=== PATIENT | male | born 1935 | race Caucasian/White ===

== ENCOUNTER 2018-07-23 03:34 | Inpatient (IN) | payer OTHER ==
[~2018-07-23] VITALS: Ht 167.6 cm; Wt 92.0 kg
[2018-07-23] VITALS (8 sets, daily range): BP systolic 107–143; BP diastolic 58–84
[~2018-07-23 03:34] MED LIST: ACIDOPHILUS LACT1 GM PO; ALEVE220 MG; ASPIRIN EC325 M1 OR; CO Q-10100 MG PO; COQ-10100 MG PO; DILTIAZEM ER300 MG OR; GLUCOPHAGE500 MG; GLUCOPHAGE500 MG OR; GLUCOSAMINE &1 EAC1; GLUCOSAMINE &1 EAC1 OR; HYALURONIC ACI1 EACH PO; HYALURONIC ACID OR; JANUVIA100 MG PO; LIPITOR40 MG PO; LISINOPRIL40 MG OR; MOBIC15 MG PO; NITROQUICK0.4 MG; OMEGA 3-6-9 CO400 MG PO; PRILOSEC 20 MG20 MG PO; PROAIR HFA8.5 GM IH; RANITIDINE HCL300 M1 OR; SIMVASTATIN40 MG OR; TRAMADOL 50 MG50 MG PO; TYLENOL EXTRA500 MG PO; ULTRAM 50MG TAB50 MG PO; VITAMIN D32000 UNIT OR; [UNRECOGNIZED DRUG - OTHER] PO; cartia XT PO
[2018-07-23] MEDS ORDERED: ASPIRIN325 PO (03:42)
[2018-07-23] MEDS ORDERED: ASPIR 8181 MG PO (03:42)
[2018-07-23 04:00] LABS: ABSOLUTE NEUTROPHILS 5.6 thou/uL (1.4-8.2); BASOPHILS 0.6 % (0.0-2.0); HEMATOCRIT 44.6 % (42.0-52.0); HEMOGLOBIN 15.2 gm/dL (14.0-18.0); LYMPHOCYTES 26.4 % (24.0-44.0); MCH 29.3 pg (26.0-34.0); MCHC 34.1 g/dL (28.0-37.0); MONOCYTES 11.8 % (1.0-8.0); PLATELET COUNT 275 thou/uL (150-400); POLYS 58.2 % (36.0-66.0); RBC 5.18 mil/uL (4.50-6.00); RDW 13.5 % (10.5-14.5); WBC 9.6 thou/uL (4.0-11.0)
[2018-07-23 04:03] LABS: ANION GAP 11 mmol/L (7-16); BUN 18 mg/dL (7-18); CHLORIDE 104 mmol/L (98-107); CO2 26 mmol/L (21-32); GLUCOSE 152 mg/dL (74-106); POTASSIUM 4.1 mmol/L (3.5-5.1); SODIUM 141 mmol/L (136-145)
[2018-07-23 04:11] LABS: TROPONIN-I <0.06 ng/mL (<0.06)
[2018-07-23] MEDS ORDERED: CARTIA XT300 M1 PO (05:15)
[2018-07-23] MEDS ORDERED: ALPHA LIPOIC A600 M1 PO (06:04)
[2018-07-23] MEDS ORDERED: MULTI VITAMIN1 EACH PO (06:05)
[2018-07-23 06:22] LABS: CHOLESTEROL 143 mg/dL (<200); HDL CHOLESTEROL 26 mg/dL (>40); LDL CHOLESTEROL 67 mg/dL (<100); TC:HDL 5.5 Ratio (Not establshd); TRIGLYCERIDE 251 mg/dL (<150); VLDL 50 mg/dL (<40)
[2018-07-23 06:26] LABS: SERUM ASSESSMENT Moderate Lipemia
--- NOTE | 2018-07-23 08:00 | NUR ---
05:37>ADMITTED AN 82 Y/M FROM ED W/ CC CHEST PRESSURE. ADMISSION CARE DONE. ASSESSMENT DOCUMENTED. DENIES ANY PAIN, DENIES CHEST PRESSURE AMND DENIES TINGLING SENSATION OR NUMBNESS. SR ON THE MONITOR. 02 AT 2L/NC, DENIES SOA. INSTRUCTED TO BE ON NPO. IV ON THE RIGHT AC SALINE LOCKED. FF UP POC.
--- NOTE | 2018-07-23 11:38 | 2DMMODE ---
[facility] [place] [address] 2 D/M-MODE ECHOCARDIOGRAM Name: JADE JENNINGS Room #: 218-P ADM IN M.R.#: [id number] ������������� Admission: 07/23/18 ������������� Attend Phys: Francisco Ptaton, Discharge: ��� ������������� ��� Date of : 39 Date of Service: 07/23/18 1138 �� Report #: [id number] �������� ��������������������������������������������[id number] THIS REPORT FOR: //name// APPROVED REPORT Study performed: 07/23/2018 08:36:31 EXAM: Comprehensive 2D, Doppler, and color-flow Echocardiogram Patient Location: Echo lab Room #: 218 Status: on-call BSA: 2.00 HR: 59 bpm BP: 123/61 mmHg Rhythm: NSR Other Information Study Quality: Adequate Indications Chest Pressure Dyspnea Hx: AL, stent, HTN, HLP, DM. 2D Dimensions RVDd: 39.07 mm IVSd: 9.51 (7-11mm) LVDd: 49.80 mm PWd: 10.75 (7-11mm) Ascending Ao: 37.16 (22-36mm) LVDs: 31.91 (25-40mm) Aortic Root: 38.00 mm Volumes Left Atrial Volume (Systole) Single Plane 4CH: 38.22 mL Single Plane 2CH: 60.96 mL LA ESV Index: 26.00 mL/m2 Aortic Valve AoV Peak Abad.: 1.24 m/s AO Peak Gr.: 6.19 mmHg LVOT Max P.63 mmHg LVOT Max V: 0.95 m/s Mitral Valve E/A Ratio: 0.8 MV Decel. Time: 293.38 ms [facility] [address] [place] [address] 2 D/M-MODE ECHOCARDIOGRAM Name: JADE JENNINGS Room #: 218-P [facility] IN ..#: [id number] ������������� Admission: 07/23/18 ������������� Attend Phys: Francisco Patton, Discharge: ��� ������������� ��� Date of : 39 Date of Service: 07/23/18 1138 �� Report #: [id number] �������� ��������������������������������������������[id number] MV E Max Abad.: 0.65 m/s MV A Abad.: 0.81 m/s MV PHT: 85.08 ms IVRT: 87.66 ms Pulmonary Valve PV Peak Abad.: 0.92 m/s PV Peak Gr.: 3.36 mmHg Pulmonary Vein P Vein S: 0.65 m/s P Vein A: 0.29 m/s P Vein D: 0.35 m/s P Vein A Dur.: 124.6 msec P Vein S/D Ratio: 1.86 Tricuspid Valve TR Peak Abad.: 2.39 m/s RAP Estimate: 5.00 mmHg TR Peak Gr.: 22.81 mmHg PA Pressure: 28.00 mmHg Left Ventricle The left ventricle is normal size. There is normal left ventricular wall thickness. Left ventricular systolic function is normal. LVEF is 55%. Mild diastolic dysfunction is present (impaired relaxation pattern). Right Ventricle The right ventricle is normal size. The right ventricular systolic function is normal. Atria The left atrium size is normal. The right atrium size is normal. Aortic Valve Aortic valve is trileaflet, mildly calcified. No aortic regurgitation is present. There is no aortic valvular stenosis. Mitral Valve The mitral valve is normal in structure. Mild mitral regurgitation. Tricuspid Valve The tricuspid valve is normal in structure. Trace tricuspid regurgitation. Estimated PAP is 28mmHg. Unable to assess PA pressure. Trace tricuspid regurgitation. Pulmonic Valve [facility] [address] [place] [address] 2 D/M-MODE ECHOCARDIOGRAM Name: JADE JENNINGS Room #: 218-P [facility] IN M.R.#: [id number] ������������� Admission: 07/23/18 ������������� Attend Phys: Francisco Patton, Discharge: ��� ������������� ��� Date of : 39 Date of Service: 07/23/18 1138 �� Report #: [id number] �������� ��������������������������������������������[id number] The pulmonary valve is normal in structure. Pulmonic valve is grossly normal in structure. Pulmonic valve is not well visualized. Pulmonic valve leaflets are thickened. Pulmonic valve leaflets are calcified. Trace pulmonic regurgitation. Great Vessels The aortic root and ascending aorta measure at the upper limits of normal. IVC is normal in size and collapses >50% with inspiration. Pericardium There is no pericardial effusion. <Conclusion> The left ventricle is normal size. There is normal left ventricular wall thickness. LVEF is 55%. The right ventricle is normal size. The right ventricular systolic function is normal. Aortic valve is trileaflet, mildly calcified. No aortic regurgitation is present. There is no aortic valvular stenosis. The mitral valve is normal in structure. Mild mitral regurgitation. There is no pericardial effusion. ��������������������������������������������� <ELECTRONICALLY SIGNED> ���������������������������������������� By: Zander Garcia MD ��������������������������������������������� 07/23/18 1138 1138 1138 Zander Garcia MD /INF
[2018-07-24 00:20] VITALS: BP 136/88
[2018-07-24 03:06] LABS: GLYCOHEMOGLOBIN (HGB A1C) 7.7 % (4.8-5.6)
[2018-07-24 04:13] VITALS: BP 151/83
[2018-07-24 05:11] LABS: CALCIUM 8.8 mg/dL (8.5-10.1); CREATININE 0.9 mg/dL (0.7-1.3)
--- NOTE | 2018-07-24 05:56 | NUR ---
ASSESSMENT DOCUMENTED. DENIES ANY PAIN. ABLE TO SLEEP WELL. FF UP POC,
[2018-07-24 08:30] VITALS: BP 153/78
[2018-07-24 12:30] VITALS: BP 139/79
--- NOTE | 2018-07-24 13:35 | EKG ---
[place] [address] [facility] [place] [address] ELECTROCARDIOGRAM REPORT Name: JADE JENNINGS Room #: 218-P ADM IN M.R.#: [id number] ������������������ Admission: 07/23/18 ������������������ Attend Phys: Francisco Patton MD Discharge: ������������������ Date of : 39 Report #: [id number] ����������������������������������������������������������������� [id number] THIS REPORT FOR: //name// [facility] ED Test Date: 2018-07-23 Test Time: 03:48:08 Pat Name: JADE JENNINGS Department: Room: 218 Gender: M Assistant Oceanographer: KRISTA : 1935 Requested By: Yeny Aden Order Number: [id number] MD: Carlos A Echeverria Measurements Intervals [place] Rate: 77 P: -41 WV: 189 QRS: -17 QRSD: 91 T: 23 QT: 381 QTc: 432 Interpretive Statements Sinus rhythm Ventricular premature complex Left ventricular hypertrophy Compared to ECG 11/19/2012 08:54:13 Ventricular premature complex(es) now present Electronically Signed On 07-24-2018 13:35:22 CDT by Carlos A Echeverria [email or web address] ��������������������������������������������� <ELECTRONICALLY SIGNED> ���������������������������������������� By: Carlos A Echeverria MD, [facility] ��������������������������������������������� 07/24/18 [phone] Carlos A Echeverria MD, [facility] /EPI
[2018-07-24 16:00] VITALS: BP 139/87
--- NOTE | 2018-07-24 18:36 | NUR ---
ASSUMED CARE AT 0715, OX4, NO COMPLAINTS OF CHEST PAIN OR SOA. VSS. NO ISSUES TODAY, VERY PLEASANT AND COMFORTABLE. NPO AFTER MN FOR HEART CATH IN AM.
[2018-07-24 19:18] VITALS: BP 157/89
[2018-07-25] VITALS (11 sets, daily range): BP systolic 138–157; BP diastolic 84–101
[2018-07-25 03:19] LABS: ABSOLUTE NEUTROPHILS 6.1 thou/uL (1.4-8.2); BASOPHILS 0.6 % (0.0-2.0); EOSINOPHILS 3.7 % (0.0-3.0); HEMATOCRIT 42.4 % (42.0-52.0); HEMOGLOBIN 14.2 gm/dL (14.0-18.0); LYMPHOCYTES 23.6 % (24.0-44.0); MCH 28.9 pg (26.0-34.0); MCHC 33.5 g/dL (28.0-37.0); MCV 86.2 fL (80.0-100.0); MONOCYTES 11.1 % (1.0-8.0); PLATELET COUNT 239 thou/uL (150-400); RBC 4.92 mil/uL (4.50-6.00); RDW 13.4 % (10.5-14.5); WBC 9.9 thou/uL (4.0-11.0)
[2018-07-25 03:33] LABS: ALBUMIN 3.5 g/dL (3.4-5.0); CALCIUM 8.9 mg/dL (8.5-10.1); CREATININE 0.9 mg/dL (0.7-1.3); POTASSIUM 3.9 mmol/L (3.5-5.1); TOTAL BILIRUBIN 0.4 mg/dL (<0.1-1.0); TOTAL PROTEIN 6.3 g/dL (6.4-8.2)
--- NOTE | 2018-07-25 03:57 | NUR ---
ASSUMED CARE 1900. VSS. ASSESSMENT CHARTED. PT DENIES CP, SOA, N/V, OR ANY RELATED SYMPTOMS. SR ON MONITOR, ONE SHORT RUN OF ST UP TO 150'S -AYSYMPTOMATIC. PLAN FOR LABS, EKG, AND PLASTER MODEL AND MOLD MAKER THIS AM. WILL CONTINUE TO MONITOR AND WITH POC.
--- NOTE | 2018-07-25 07:46 | EKG ---
[place] [address] [facility] [place] [address] ELECTROCARDIOGRAM REPORT Name: JADE JENNINGS Room #: 218-P ADM IN M.R.#: [id number] ������������������ Admission: 07/23/18 ������������������ Attend Phys: Jose De Jesus Sandoval MD Discharge: ������������������ Date of : 39 Report #: [id number] ����������������������������������������������������������������� [id number] THIS REPORT FOR: //name// [facility] Test Date: 2018-07-25 Test Time: 07:06:52 Pat Name: JADE JENNINGS Department: Room: 218 P Gender: M Leather Grader: : 1935 Requested By: Sweta Winchester Order Number: [id number] MD: Carlos A Echeverria Measurements Intervals [place] Rate: 81 P: -2 SC: 190 QRS: -8 QRSD: 87 T: 23 QT: 371 QTc: 431 Interpretive Statements Sinus rhythm Abnormal R-wave progression, early transition Compared to ECG 07/23/2018 03:48:08 Ventricular premature complex(es) no longer present Electronically Signed On 07-25-2018 7:46:33 CDT by Carlos A Echeverria [email or web address] ��������������������������������������������� <ELECTRONICALLY SIGNED> ���������������������������������������� By: Carlos A Echeverria MD, [facility] ��������������������������������������������� 07/25/18 0746 5 5 Carlos A Echeverria MD, [facility] /EPI
--- NOTE | 2018-07-25 09:29 | CATHLAB ---
[facility] [address] [place] [address] INVASIVE PROCEDURE REPORT Name: JADE JENNINGS Room #: 218-P ADM IN M.R.#: [id number] ������������� Admission: 07/23/18 ������������� Attend Phys: Jose De Jesus Sandoval, Discharge: ��� ������������� ��� Date of : 39 Date of Service: 07/25/18 0928 �� Report #: [id number] �������� ��������������������������������������������[id number] THIS REPORT FOR: //name// APPROVED REPORT Study performed: 07/25/2018 07:25:45 Patient Details Patient Status: In-Patient Room #: The patient is a 82 year-old male Event Personnel Carlos A Echeverria Cook Helper, Andres Meadows RN, Xiomy Hylton RT(R)() Colt Soto Roberta Monitor Procedures Performed Art Access - R femoral artery* Left Heart Cath w/or w/o Coronaries [id number] [facility] [address] Initial Mod Sed Same Phys/QHP Gr5y 538064 70284 Mod Sed Same Phys/QHP Ea 886656 FFR 9682219 FFR Hemostasis w/ Mynx Indication Chest pain Procedure Narrative The Right Groin^ was infiltrated with 1% Lidocaine subcutaneous anesthesia. A PINNACLE 6FR Sheath #[id number] sheath was inserted into the RFA 6F^. Coronary angiography was performed using coronary diagnostic catheters. The right coronary system was accessed and visualized with a JR4 catheter. The left coronary system was accessed and visualized with a JL4 catheter. The left ventricle was accessed and visualized with a ANGLE PIG catheter. Left ventricular/Aortic Valve gradient assessed . Closure device was deployed with a 6 Fr Mynx. The patient tolerated the procedure well and there were no complications associated with the procedure. There was no hematoma. Intraoperative Conscious Sedation Sedation start time: 0803 Case end Time: 0850 Fentanyl 50 mcg Versed 1.5 mg Fluoro Time: 3.30 minutes Dose: DAP 71291.00 cGycm2 1213 mGy Contrast Type and Amount: Omnipaque 160 ml [facility] [address] [place] [address] INVASIVE PROCEDURE REPORT Name: JADE JENNINGS Room #: 218-P [facility] IN M.R.#: [id number] ������������� Admission: 07/23/18 ������������� Attend Phys: Jose De Jesus Sandoval, Discharge: ��� ������������� ��� Date of : 39 Date of Service: 07/25/18 0928 �� Report #: [id number] �������� ��������������������������������������������[id number] Coronary Angiography The patient's coronary anatomy is right dominant. Diagnostic Cath Left Main Normal, short left main LAD The LAD was a large vessel that extended to the apex. Mild 10-20% proximal calcific plaquing. Diagonal 1 Small first diagonal branch, angiographically normal Diagonal 2 Second small diagonal branch, angiographically normal Circumflex Large but nondominant circumflex comprised of a single large marginal branch. Mild proximal plaquing. OM1 Mild 10-20% proximal plaquing Right Coronary The right coronary was dominant with a 50% mid right coronary stenosis. This was not flow-limiting by FFR 0.95 R PDA Normal posterior descending branch RPLV Normal posterolateral branch Left Ventriculography The left ventricle is normal in size with normal contractility. The left ventricular ejection fraction is estimated to be 60-65%. Left ventricular wall motion abnormalities are not present. There is no mitral insufficiency. Hemodynamics The aortic pressure is 156/85 mmHg with a mean of 110 mmHg. The left ventricular pressure is 140/11 mmHg with a mean of mmHg. The left ventricular end diastolic pressure is 15 mmHg. There was no gradient across the aortic valve upon pullback. Conclusion 1. Normal global and regional left ventricular systolic function. Ejection fraction 65% 2. Normal left main 3. Mild LAD plaquing 4. Mild circumflex plaquing 5. 50% mid right coronary stenosis, not flow-limiting by FFR assessment 0.95 [facility] [address] [place] [address] INVASIVE PROCEDURE REPORT Name: JENNINGSJADE RUFINO Room #: 218-P [facility] IN [facility].#: [id number] ������������� Admission: 07/23/18 ������������� Attend Phys: Jose De Jesus Sandoval, Discharge: ��� ������������� ��� Date of : 39 Date of Service: 07/25/18 0928 �� Report #: [id number] �������� ��������������������������������������������[id number] Recommendations Aggressive Medical Therapy ��������������������������������������������� <ELECTRONICALLY SIGNED> ���������������������������������������� By: Carlos A Echeverria MD, [facility] ��������������������������������������������� 07/25/18927 7 7 Carlos A Echeverria MD, [facility] /INF
--- NOTE | 2018-07-25 15:21 | NUR ---
PT CARE ASSUMED APPROX 0700. PT ALERT AND ORIENTED X4. DENIES PAIN AND SOA. PT WENT FOR CARDIAC CATH THIS AM FIRST THING. RETURNED FROM [facility] APPROX 0900 WITHOUT INTERVENTION. POST CATH PROTOCOL COMPLETED. RIGHT GROIN POST CATH SITE C/D/I. VSS STABLE POST CATH. DR ANDERSON APPROVED PT FOR DISCHARGE. DR LANZA SIGNED OFF. DISCHARGE PAPERWORK REVIEWED WITH PT. PT AND SPOUSE DENIED QUESTIONS OR CONCERNS REGARDING CONTINUED MEDS, F/U APPTS, VS, RIGHT GROIN POST CATH SITE CARE, POST CATH INSTRUCTIONS FOR ACTIVITY RESTRICTIONS, DIET AND GENERAL POST HOSPITAL CARE. IV OUT, TELE BOX OFF. HOSPITAL STAFF ESCORTED PUT OUT TO PERSONAL VEHICLE WITH PRESENT TO PROVIDE TRANSPORTATION HOME.
== END 2018-07-25 15:15 | disposition home or self-care (01) | DRG 287 ==
LOC: ER 03:34 → 2N 04:30 → EROBS 04:30 → 2N 05:11 → ENTRNSPT 07-25 15:00 → EDTRNSPTSTS 07-25 15:05 → 2N 07-25 15:15
PROVIDERS: Nurse Practitioner; Nurse Practitioner Family; Student in an Organized Health Care Education/Training Program; ADMIT Hospitalist
PROC: 4A033BC Measurement of Arterial Pressure, Coronary, Percutaneous Approach (ICD-10-PCS; principal; 2018-07-25)
PROC: 4A023N7 Measurement of Cardiac Sampling and Pressure, Left Heart, Percutaneous Approach (ICD-10-PCS; principal; 2018-07-25)
PROC: B2111ZZ Fluoroscopy of Multiple Coronary Arteries using Low Osmolar Contrast (ICD-10-PCS; principal; 2018-07-25)
PROC: B2151ZZ Fluoroscopy of Left Heart using Low Osmolar Contrast (ICD-10-PCS; principal; 2018-07-25)
DX: I25.110 Atherosclerotic heart disease of native coronary artery with unstable angina pectoris (principal); I10 Essential (primary) hypertension; E78.5 Hyperlipidemia, unspecified; E11.9 Type 2 diabetes mellitus without complications; K21.9 Gastro-esophageal reflux disease without esophagitis; Z95.5 Presence of coronary angioplasty implant and graft; Z98.49 Cataract extraction status, unspecified eye; Z79.82 Long term (current) use of aspirin; Z79.899 Other long term (current) drug therapy; Z79.84 Long term (current) use of oral hypoglycemic drugs; Z88.8 Allergy status to other drugs, medicaments and biological substances; I25.2 Old myocardial infarction; Z87.891 Personal history of nicotine dependence; Z82.49 Family history of ischemic heart disease and other diseases of the circulatory system; Z83.6 Family history of other diseases of the respiratory system
CPT/HCPCS: 10081

== ENCOUNTER → 2019-09-05 | Outpatient (CLI) | payer OTHER ==
[~2019-09-05] MED LIST changes: +ALPHA LIPOIC A600 M1 PO; +ASPIR 8181 MG PO; +ASPIRIN325 PO; +CARTIA XT300 M1 PO; +FAMOTIDINE20 MG PO; +GLUCOPHAGE XR500 MG PO; +JARDIANCE10 MG PO; -LISINOPRIL40 MG OR; +LISINOPRIL40 MG PO; +MULTI VITAMIN1 EACH PO; +OMEPRAZOLE40 MG PO
== END ==
LOC: SJCVC 10:11
PROVIDERS: ATTEND Internal Medicine
DX: I25.10 Atherosclerotic heart disease of native coronary artery without angina pectoris (principal); I10 Essential (primary) hypertension; E78.5 Hyperlipidemia, unspecified; I65.23 Occlusion and stenosis of bilateral carotid arteries; E11.9 Type 2 diabetes mellitus without complications; K21.9 Gastro-esophageal reflux disease without esophagitis; Z79.82 Long term (current) use of aspirin; Z79.899 Other long term (current) drug therapy; Z79.84 Long term (current) use of oral hypoglycemic drugs; Z87.891 Personal history of nicotine dependence

== ENCOUNTER 2019-10-10 08:13 | Day surgery (SDC) | payer OTHER ==
[2019-10-02 09:12] LABS: HEMATOCRIT 47.1 % (42.0-52.0); HEMOGLOBIN 15.1 gm/dL (14.0-18.0); MCH 26.8 pg (26.0-34.0); MCHC 32.1 g/dL (28.0-37.0); MCV 83.4 fL (80.0-100.0); RBC 5.65 mil/uL (4.50-6.00); RDW 15.5 % (10.5-14.5); WBC 9.4 thou/uL (4.0-11.0)
[2019-10-02 09:14] LABS: URINE BILIRUBIN NEGATIVE (Negative); URINE BLOOD NEGATIVE (Negative); URINE CLARITY CLEAR; URINE COLOR YELLOW; URINE GLUCOSE-RANDOM* 3+ (Negative); URINE KETONES NEGATIVE (Negative); URINE LEUKOCYTES-REFLEX NEGATIVE (Negative); URINE NITRITE-REFLEX NEGATIVE (Negative); URINE PROTEIN (DIPSTICK) NEGATIVE (Negative); URINE UROBILINOGEN 0.2 E.U./dl (0.2-1.0)
[2019-10-02 09:24] LABS: ALBUMIN 3.9 g/dL (3.4-5.0); CREATININE 1.2 mg/dL (0.7-1.3); POTASSIUM 4.2 mmol/L (3.5-5.1)
[2019-10-02 09:25] LABS: PROTIME 10.5 Seconds (9.3-11.4)
[~2019-10-10] VITALS: Ht 167.6 cm; Wt 85.7 kg
--- NOTE | ~2019-10-10 | O ---
[facility] [place] [address] OPERATIVE REPORT Name: JADE JENNINGS Room #: 150-5 [facility] M.R.#: [id number] Admission: 10/10/19 Attend Phys: Diogenes Arango MD Discharge: Date of : 39 Report #: [id number] THIS REPORT FOR: cc: Sharon Lantigua MD, Jennifer S. MD Abraham,Diogenes Vick MD ~ CC: Sharon Arango DATE OF SERVICE: 10/10/2019 PREOPERATIVE DIAGNOSIS: Right knee osteoarthritis. POSTOPERATIVE DIAGNOSIS: Right knee osteoarthritis. PROCEDURE: Right total knee arthroplasty using Navio robotic general surgery physician assistant. SURGEON: Diogenes Arango MD CVT RN: Fay Mancera PA-C. INDICATIONS FOR CVT RN: Throughout the case, extensive retraction and manipulation of the knee was required. This was afforded to me by my general surgery physician assistant. ANESTHESIA: LMA with an adductor canal block. IMPLANTS: Michele and Nephew size 7 Journey II BCS cobalt chrome femur, a size 6 tibia, size 9 polyethylene and size 38 patella. TOURNIQUET TIME: 53 minutes. ESTIMATED BLOOD LOSS: 25 mL. COMPLICATIONS: None. SPECIMENS: None. CONDITION UPON LEAVING THE OPERATING ROOM: Stable. INDICATIONS FOR PROCEDURE: The patient is an 83-year-old gentleman with severe right knee osteoarthritis. He had failed conservative measures for this and after discussion with him, he elected for right total knee arthroplasty. DESCRIPTION OF PROCEDURE: Risks, benefits, alternatives, complications were discussed in detail with the patient including but not limited to risk of anesthesia, risk of damage to nerves, arteries, blood vessels, risk for [facility] [address] [place] [address] OPERATIVE REPORT Name: JADE JENNINGS Room #: 150-5 [facility] M.R.#: [id number] Admission: 10/10/19 Attend Phys: Diogenes Arango MD Discharge: Date of : 37 Report #: [id number] infection, bleeding, risk for continued knee pain, need for reoperation. Informed consent was obtained from the patient. Right knee was appropriately marked in the preoperative holding area. Adductor canal block was placed by anesthesia. IV Ancef was given for preoperative antibiotics. He was brought to the operating room and placed in supine position on operating room table. General anesthesia was induced without complication. Tourniquet was placed on the right thigh. Right lower extremity was prepped and draped in normal sterile fashion. Timeout was performed properly identifying the patient and procedure as well as the instrumentation. All in the operating room were in agreement. Right lower extremity was exsanguinated, tourniquet was inflated. Tourniquet time was 53 minutes. Standard midline approach to the knee was made with 10 blade through the skin. Dissection was taken down sharply to the fascia and deep flaps were developed medially and laterally. Fresh 10 blade was used to make a medial parapatellar arthrotomy and the knee was inspected. There was severe tricompartmental osteoarthritis. ACL and PCL were removed sharply. Reference pins were placed in the femur and the tibia. The knee was then digitally mapped using the Manatron robotic system. Intraoperative plan was made and we sized the size 7 femur and the size 6 tibia and a size 10 spacer. After acceptance of the intraoperative plan, the distal femoral cut was then made with a Navio bur. Distal femoral cutting block was pinned in place and the chamfer cuts were made on the femur. Attention was turned to the tibia. The remainder of the menisci removed with Bovie cautery. Tibial resection guide was pinned in place using the Navio for placement and tibial resection was made. Flexion and extension gaps were then checked and found to have good balance in flexion and extension both medially and laterally. Tibia was sized, found to be a size 6. The size 6 tibial trial was placed, pinned and punched. A size 7 femoral trial was placed and the box cut was made. This was then trialed with a size 9 polyethylene. Knee was taken through range of motion, found to have 1.5-2 millimeter of laxity medially and laterally throughout range of motion both digitally as well as manually. A 9 mm was resected from the posterior surface of the patella and a size 38 patellar trial button was placed. Knee was taken through range of motion, found to be stable, found to have good patellar tracking. Trial components were removed. Bony ends were thoroughly irrigated with normal size 6 tibia, size 7 Journey II BCS cobalt chrome femur and a size 38 patella were cemented in place using standard cementation techniques. While the cement cured, a periarticular injection consisting of morphine, ropivacaine, epinephrine and Toradol was placed around the knee joint capsule. After the cement cured, tourniquet was deflated. Hemostasis was obtained with Bovie cautery. Final size 9 polyethylene was placed. A gram of vancomycin was placed deep in the joint. Fascia was closed with 0 Vicryl, skin was closed with 2-0 Vicryl, skin staple and a MYAH dressing was applied. The patient tolerated this [facility] [address] [place] [address] OPERATIVE REPORT Name: JADE JENNINGS Room #: 150-5 [facility] M.R.#: [id number] Admission: 10/10/19 Attend Phys: Diogenes Arango MD Discharge: Date of : 39 Report #: [id number] procedure well and went to recovery room under care of anesthesia postoperatively. By: 1128 1145 Diogenes Arango MD /nt
[2019-10-10 09:12] VITALS: BP 132/64
[2019-10-10 16:30] VITALS: BP 130/68
[2019-10-10 19:45] VITALS: BP 142/77
--- NOTE | 2019-10-10 19:46 | NUR ---
Pt came to unit from PACU appro 1315. Pt a&ox4. Denies pain. Dressing c/d/i. MARIAELENA hose and SCDs in place. Polar pack in place. Pt diabetic. FLuids switched to normal saline per dr order. Pt worked with physical therapy. Able to void. Up with SBA to the toilet with walker and gait-belt. Fall precautions in place. Will continue to [facility].
[2019-10-11 00:46] VITALS: BP 131/72
--- NOTE | 2019-10-11 03:19 | NUR ---
ASSESSED AT START OF SHIFT PT A&OX4 RESTING IN BED DENIES PAIN DURING ASSESSEMENT. IV INTACT AND FLUIDS INFUISING. MYAH DRESSING, POLAR PACK AND SCD'S IN PLACE. PT UP WITH ASSIST TO THE BATHROOM. BLOODSUGAR CHECKED AND METFORMIN GIVEN FALL PREC IN PLACE AND CALL LIGHT IN REACH WILL CONT WITH POC TILL EOS.
[2019-10-11 04:05] VITALS: BP 123/69
[2019-10-11 05:48] LABS: HEMATOCRIT 42.8 % (42.0-52.0); HEMOGLOBIN 13.7 gm/dL (14.0-18.0); MCH 26.8 pg (26.0-34.0); MCHC 31.9 g/dL (28.0-37.0); MCV 84.1 fL (80.0-100.0); RBC 5.09 mil/uL (4.50-6.00); RDW 15.5 % (10.5-14.5); WBC 16.8 thou/uL (4.0-11.0)
[2019-10-11 12:13] VITALS: BP 123/69
--- NOTE | 2019-10-11 12:57 | NUR ---
PT CARE ASSUMED AT 0700.A&Ox4. SCD/MARIAELENA HOSES AND MYAH DRESSING IN PLACE. POLAR PACK IN PLACE. IV PATENT WITH NO REDNESS OR EDEMA. IV REMOVED. DISCHARGE INSTRUCTIONS GIVEN. UP WITH WALKER. PAIN MANAGED WELL WITH PAIN MEDICATION. ACHS WITH NO COVERAGE NEEDED. PT HAS NO QUESTIONS. FALL PROTOCOL WAS IN PLACE. DISCAHRGED WITH SPOUSE.
== END 2019-10-11 13:04 | disposition home or self-care (01) ==
LOC: OR 08:13 → TBA 08:14 → PRE 08:30 → EDSTATUS 11:22 → OR 11:50 → PRE 11:54 → 4S 13:19 → PRE 16:24 → OR 10-11 13:04
PROVIDERS: ATTEND Orthopaedic Surgery
DX: M17.11 Unilateral primary osteoarthritis, right knee (principal); M25.561 Pain in right knee; I10 Essential (primary) hypertension; E11.9 Type 2 diabetes mellitus without complications; E78.5 Hyperlipidemia, unspecified; K21.9 Gastro-esophageal reflux disease without esophagitis; Z98.890 Other specified postprocedural states; Z79.899 Other long term (current) drug therapy; Z98.41 Cataract extraction status, right eye; Z11.59 Encounter for screening for other viral diseases; Z98.42 Cataract extraction status, left eye; Z87.442 Personal history of urinary calculi; Z87.891 Personal history of nicotine dependence; Z79.82 Long term (current) use of aspirin; Z88.8 Allergy status to other drugs, medicaments and biological substances
CPT/HCPCS: 50010; 50101; 50415; 50954; 51130; 51225; 51320; 52001; 52282; 53000; 53078; 54118; 56527; 56528; 57095; 57103; 57110; 57127; 57179; 57952; 62110; 62900; 64039; 70005

== ENCOUNTER → 2020-03-07 | Outpatient (CLI) | payer OTHER | LOC: SJCVC 10:34 | PROVIDERS: ATTEND Internal Medicine | DX: R94.31 Abnormal electrocardiogram [ECG] [EKG] (principal); I11.9 Hypertensive heart disease without heart failure; I51.7 Cardiomegaly; I25.10 Atherosclerotic heart disease of native coronary artery without angina pectoris; E78.5 Hyperlipidemia, unspecified; E11.9 Type 2 diabetes mellitus without complications; I65.23 Occlusion and stenosis of bilateral carotid arteries ==

== ENCOUNTER → 2020-10-16 | Outpatient (CLI) | payer OTHER | LOC: SJCVCIMAG 10:23 | PROVIDERS: ATTEND Internal Medicine | DX: R94.31 Abnormal electrocardiogram [ECG] [EKG] (principal); I08.0 Rheumatic disorders of both mitral and aortic valves; I11.9 Hypertensive heart disease without heart failure; I65.23 Occlusion and stenosis of bilateral carotid arteries; R00.1 Bradycardia, unspecified; I25.10 Atherosclerotic heart disease of native coronary artery without angina pectoris; E78.5 Hyperlipidemia, unspecified; E11.9 Type 2 diabetes mellitus without complications; G47.33 Obstructive sleep apnea (adult) (pediatric); K21.9 Gastro-esophageal reflux disease without esophagitis; E78.00 Pure hypercholesterolemia, unspecified; Z79.82 Long term (current) use of aspirin; Z79.899 Other long term (current) drug therapy; Z79.84 Long term (current) use of oral hypoglycemic drugs; Z87.891 Personal history of nicotine dependence; Z72.89 Other problems related to lifestyle; Z98.61 Coronary angioplasty status ==